=== PATIENT | male | born 1965 | race Caucasian/White ===

== ENCOUNTER → 2024-04-25 15:52 | Outpatient (REF) | payer OTHER, SELFPAY ==
[2024-04-25 16:52] LABS: % Basophils 1.1 % (0-2); % Immature Granulocytes 0.5 % (0-0.5); % Lymphocytes 22.4 % (20.5-51.1); % Monocytes 6.8 % (1.7-9.3); % Neutrophils 61.2 % (42.2-75.2); Absolute Basophils 0.1 10^3/uL (0-0.2); Absolute Eosinophils 0.6 10^3/uL (0-0.7); Absolute Lymphocytes 1.8 10^3/uL (1.2-3.4); Absolute Monocytes 0.5 10^3/uL (0.1-0.6); Absolute Neutrophils 4.8 10^3/uL (1.4-6.5); Hematocrit 44.8 % (39.0-52.0); Hemoglobin 14.3 g/dL (13.0-18.0); Mean Corp Hgb Conc. 31.9 g/dL (33.0-37.0); Mean Corpuscular Hgb 30.8 pg (27.0-31.0); Mean Corpuscular Volume 96.3 fL (80.0-94.0); Mean Platelet Volume 9.6 fL (7.4-10.4); Nucleated Red Blood Cells % 0 % (-); Platelet Count 225 10^3/uL (130-400); Red Blood Cell Count 4.65 10^6/uL (4.70-6.10); Red Cell Dist. Width 12.8 % (11.5-14.5); White Blood Cell Count 7.9 10^3/uL (4.8-10.8)
[2024-04-25 17:12] LABS: Blood Urea Nitrogen 21 mg/dl (9-20); Calcium 8.9 mg/dl (8.4-10.2); Carbon Dioxide 32 mmol/L (22-30); Chloride 100 mmol/L (98-107); Glucose 109 mg/dl (70-99); Potassium 4.3 mmol/L (3.5-5.1); Sodium 140 mmol/L (135-145); eGFR > 60.00
== END ==
LOC: RAD 15:52
PROVIDERS: ATTENDING PHYSICIAN Student in an Organized Health Care Education/Training Program; FAMILY PHYSICIAN Internal Medicine
DX: Z01.818 Encounter for other preprocedural examination (principal)
CPT/HCPCS: 36415; 80048; 85025; 93005

== ENCOUNTER 2024-05-03 06:21 | Day surgery (SDC) | payer OTHER, SELFPAY ==
[2024-05-03] VITALS (11 sets, daily range): BP systolic 113–134; BP diastolic 69–84; BMI 23.5
--- NOTE | 2024-05-03 15:52 | W.IMMPOSTOP ---
Surgical Immed Post Op Note
-
Primary Surgeon: Brandon Hernandez MD
Assisting Surgeon:
Pre-op Diagnosis: right knee lateral meniscal tear
Post-op Diagnosis: right knee lateral meniscal tear, lateral femoral condyle and trochlear chondrosis
Procedure Performed: right knee lateral meniscal repair, chondroplasty
Anesthesia Type: general
Specimen / Cultures: none
Estimated Blood Loss: 1mL
Complications: none apparent
Tourniquet time: 60 minutes
Operative Findings: large bucket handle lateral meniscal tear, 5x5mm area of grade 4 chondrosis lateral femoral condyle
Operative dictation number: [id number]
[2024-05-03] MEDS: DILAUDID 0.5 MG IV ×2 (16:07→16:30)
[2024-05-03] MEDS: ZOFRAN 4 MG IV (16:30)
== END 2024-05-03 18:13 | disposition home or self-care (01) ==
LOC: SDS 06:21
PROVIDERS: ATTENDING PHYSICIAN Student in an Organized Health Care Education/Training Program
DX: S83.251A Bucket-handle tear of lateral meniscus, current injury, right knee, initial encounter (principal); X58.XXXA Exposure to other specified factors, initial encounter; M94.261 Chondromalacia, right knee
CPT/HCPCS: 29882